=== PATIENT | female | born 1990 | race Caucasian/White ===

== ENCOUNTER 2023-12-03 10:52 | Outpatient (CLI) | payer OTHER, SELFPAY ==
--- OUTSIDE RECORDS SUMMARY | 2023-12-03 10:55 | XMS_ITS | Clinical Summary ---
Author Name Unknown Organization [place] Address [address] [place] [address]. [place] [address] Care Team Providers Care Concrete Block Molder Name Role Phone Courtney Vilchis MD Primary Care Provider Allergies Active Allergy Reactions Criticality Noted Date Comments Ciprofloxacin 12/24/2016 Tendons ached Penicillins 05/03/2013 Secukinumab 02/05/2018 Medications Medication Sig Dispensed Refills Start Date End Date Status ADDERALL XR 25 MG 24 hr capsule 0 11/02/2016 Active tretinoin (RETIN-A) 0.05 % cream 0 10/21/2017 Active HUMIRA *CF* PEN 40 MG/0.4ML pen kit 0 09/22/2018 Active nitroFURantoin macrocrystal-monohydr ate (MACROBID) 100 MG capsuleIndications:Re current UTI Take 1 capsule (100 mg) by mouth daily as needed (After intercourse) 30 capsule 3 03/02/2020 Active nitroFURantoin macrocrystal (MACRODANTIN) 100 MG capsuleIndications:Re current UTI Take 1 capsule (100 mg) by mouth daily as needed (After intercourse) 30 capsule 1 03/07/2020 Active Active Problems Problem Noted Date Diagnosed Date depression 07/07/2015 Attention deficit hyperactivity disorder (ADHD) 04/13/2014 Overview: Problem list name updated by automated process. Provider to review Last Assessment & Plan: Seen at [facility] for treatment of ADHD. Psoriasis 04/13/2014 CARDIOVASCULAR SCREENING; LDL GOAL LESS THAN 160 04/13/2014 Resolved Problems Problem Noted Date Diagnosed Date Resolved Date BMI 30.0-30.9,adult 12/24/2016 01/12/20 20 S/P section 05/23/2015 015 Indication for care in labor or delivery 05/22/2015 07/07/2015 IUFD (intrauterine ) 05/22/2015 07/07/2015 Supervision of normal first 10/21/2014 07/07/2015 Contraception 04/13/2014 11/25/2014 Immunizations Name Administration Dates Next Due Influenza Vaccine >6 months,quad, PF 08/11/2019, 07/09/2018,05/18/2015 TDAP (Adacel,Boostrix) 02/06/2013 TDAP Vaccine (Adacel) 03/21/2015 Family History Medical History Relation Comments Depression Father Heart Disease Father of heart at tack Hypertension Father Lipids Father Anxiety Disorder Mother Hyperlipidemia Mother Breast Cancer Paternal Aunt 1 Breast Cancer Paternal Aunt 2 Breast Cancer Paternal Grandmother Relation Status Comments Brother Alive Father Maternal Grandfather Alive Maternal Grandmother Alive Mother Alive Paternal Aunt 1 Alive Paternal Aunt 2 Other Paternal Grandfather Alive Paternal Grandmother Alive Sister Alive Social History Tobacco Use Types Packs/Day Years Used Date Smoking Tobacco: Never Smokeless Tobacco: Never Alcohol Use Standard Drinks/Week Comments Yes 10 (1 standard drink = 0.6 oz pu re alcohol) occasional AUDIT-C Answer Date Recorded Frequency of Alcohol Consumption Not on file 01/12/2020 Q2: How many drinks containi ng alcohol do you have on a typical day when you are drinking? 1 or 2 01/12/2020 Frequency of Binge Drinking Not on file 12/24 PHQ-2 Answer Date Recorded PHQ-2 Score 2 04/13/2019 Adolescent Education Answer Date Record ed Getting School Help Needed Not on file 05/16 Education Answer Date Recorded What is the highest level of school you have completed or the highest degree you have received? 12th grade 01/12/2020 Sex and Gender Information Value Date Recorded Sex Assigned at Not on file Gender Identity Not on file Sexual Orientation Not on file Last Filed Vital Signs Vital Sign Reading Time Taken Comments Blood Pressure 115/74 01/12/2020 9:38 AM CDT Pulse 78 01/12/2020 9:38 AM CDT Temperature 37 ??C (98.6 ??F) 01/12/2020 9:38 AM CDT Respiratory Rate 16 01/12/2020 9:38 AM CDT Oxygen Saturation 99% 01/12/2020 9:38 AM CDT Inhaled Oxygen Concentration - - Weight 82.1 kg (181 lb) 01/12/2020 9:38 AM CDT Height 177.8 cm (5' 10) 01/12/2020 9:38 AM CDT Body Mass Index 25.97 01/12/2020 9:38 AM CDT Plan of Treatment Not on file Procedures Procedure Name Priority Date/Time Associated Diagnosis Comments PAP IMAGED THIN LAYER SCREEN Routine 04/13/2019 9:13 AM CDT Screening for cervical cancer HIV ANTIGEN ANTIBODY COMBO Routine 09/30/2014 10:07 AM SUPERVISOR BOTTLE HOUSE CLEANERS Supervision of normal first , first trimester from Last 3 Months or Most Recently Relevant to Health Maintenance Results * Pap imaged thin layer screen reflex to HPV if ASCUS - recommend age 25 - 29 (04/13/2019 9:13 AM CDT) PAP CANDY Gill Report Patient Name: MISHEL AYALA MR#: [id number] Specimen #: [id number] Collected: 04/13/2019 Received: 04/13/2019 Reported: 04/15/2019 10:13 Ordering Phy(s): IGNACIA BLOOM For improved result formatting, select 'View Enhanced Report Format' under Linked Documents section. SPECIMEN/STAIN PROCESS: Pap imaged thin layer prep screening (Surepath, FocalPoint with guided screening) ? Pap-Cyto x 1 SOURCE: Specimen Source Not Indicated Pap imaged thin layer prep screening (Surepath, FocalPoint with guided screening) SPECIMEN ADEQUACY: Satisfactory for evaluation. -Transformation zone component present. CYTOLOGIC INTERPRETATION: Negative for intraepithelial lesion or malignancy Electronically signed out by: DONNY Darling ([facility]) CLINICAL HISTORY: Papanicolaou Test Limitations: ??Cervical cytology is a screening test with limited sensitivity; regular screening is critical for cancer prevention; Pap tests are primarily effective for the diagnosis/preventi on of squamous cell carcinoma, not adenocarcinomas or other cancers. COLLECTION SITE: Client: ??[facility] Location: [facility] (R) The technical component of this testing was completed at the [facility], with the professional component performed at the [facility], [address] [place] [phone] ([phone]) COPATH Cytologic material (specimen) 04/13/2019 9:13 AM CDT 04/13/2019 2:41 PM CDT Ignacia Bloom PA-C LAB - OPTIM E CLINICAL SPECIMEN Performing Organization Address [facility]/ZIP Co de Phone Number COPATH * HIV Antigen Antibody Combo (09/30/2014 10:07 AM SUPERVISOR BOTTLE HOUSE CLEANERS) HIV Antigen Antibody Combo Nonreactive HIV-1 p24 Ag & HIV-1/HIV-2 Ab Not Detected NR [facility] Blood specimen (specimen) 09/30/2014 10:07 AM SUPERVISOR BOTTLE HOUSE CLEANERS 09/30/2014 10:09 AM SUPERVISOR BOTTLE HOUSE CLEANERS Hood Chery MD LAB - BLOOD ORDERAB LES Performing Organization Address City/[facility]/ZIP Co de Phone Number [facility] [address] [place] [address] from Last 3 Months or Most Recently Relevant to Health Maintenance Care Teams Concrete Block Molder Relationship Specialty Start Date End Date Courtney Vilchis MD [address] [place], [place] [id number] PCP - General Family Practice 01/11/20
--- OUTSIDE RECORDS SUMMARY | 2023-12-03 10:55 | XMS_ITS | Clinical Summary ---
Author Name Unknown Organization [facility] Address [place], [place] [address] Care Team Providers Care Charter Coach Driver Name Role Phone Kendall Vinson MD Primary Care Provider [phone] Allergies Active Allergy Reactions Criticality Noted Date Comments Ciprofloxacin *Unknown - Pt Doesn' t Remember 07/02/2016 Ciprofloxacin *Unknown 05/28/2019 Penicillin Hives 05/26/2015 pt says she has had amox before without issues 05/28/19 Penicillins *Unknown - Pt Doesn' t Remember 07/02/2016 Medications Medication Sig Dispensed Refills Start Date End Date Status ranitidine (ZANTAC) 150 mg tablet Take 150 mg by mouth once daily. Active LORATADINE (CLARITIN ORAL) 1 Tab DAILY. Active Social History Tobacco Use Types Packs/Day Years Used Date Smoking Tobacco: Never Assessed Sex and Gender Information Value Date Recorded Sex Assigned at Not on file Gender Identity Not on file Sexual Orientation Not on file Last Filed Vital Signs Vital Sign Reading Time Taken Comments Blood Pressure 136/84 05/26/2015 2:00 PM CDT Pulse 84 05/26/2015 2:00 PM CDT Temperature 35.9 ??C (96.7 ??F) 05/26/2015 2:00 PM CD T Respiratory Rate 16 05/26/2015 2:00 PM CDT Oxygen Saturation - - Inhaled Oxygen Concentration - - Weight - - Height - - Body Mass Index - - Plan of Treatment Health Maintenance Due Date Last Done Comments Tdap 2002 Depression screening for age 12+ 2003 HIV for age 15-65 2006 BMI (ht and wt on same day) for age 18+ 2009 Hepatitis C screening for ag e 18-79 2009 Tetanus booster 2011 COVID-19 vaccine series (2022- season) 2023 Influenza for age 9-49 04/25/2024 Pap test for age 21-65 10/30/2025 , 10/30/2022 Pneumococcal series for age 6-64 Aged Out No longer eligible b ased on patient's age to complete this topic Procedures Procedure Name Priority Date/Time Associated Diagnosis Comments HPV THIN PREP Routine 10/30/2022 12:45 PM PACKING TRACTOR MACHINE OPERATOR from Last 3 Months or Most Recently Relevant to Health Maintenance Results * HPV HIGH RISK (10/30/2022 12:45 PM PACKING TRACTOR MACHINE OPERATOR) TYPE 16 Negative Negative 11/07/2022 10:23 AM CDT [facility] TRAL LABORATORY TYPE 18 Negative Negative 11/07/2022 10:23 AM CDT [facility] OTHER HIGH RISK TYPES Negative Negative 11/07/2022 10:23 AM CDT [facility] Other (Cervical/Vagina l) 10/30/2022 12:45 PM PACKING TRACTOR MACHINE OPERATOR 11/01/2022 8:46 AM PACKING TRACTOR MACHINE OPERATOR Narrative [facility] - 11/07/2022 10:23 AM CDT HPV types 16, 18, 31, 33, 35, 39, 45, 51, 52, 56, 58, 59, 66 and 68 DNA were undetectable or below the pre-set threshold. Methodology: Betito Dyan 4800 HPV Test Frankie Miguel PA-C MICROBIOLOGY [facility] [address] [place] [address], [place] from Last 3 Months or Most Recently Relevant to Health Maintenance Care Teams Charter Coach Driver Relationship Specialty Start Date End Date Kendall Vinson MD [address] [place] [address] PCP - General Family Practice 09/28/20
--- OUTSIDE RECORDS SUMMARY | 2023-12-03 10:55 | XMS_ITS | Encounter Summary ---
Author Name Unknown Organization [place] Address [facility] [place] [address] Care Team Providers Care Print Finishing Worker Name Role Phone Hood Chery MD Primary Care Provider Unav ailable Mary Nguyễn Ra STEAMFITTER APPRENTICE GROUND WATER TECHNICIAN Primary Care Provid er Mary Nguyễn Ra STEAMFITTER APPRENTICE GROUND WATER TECHNICIAN Unavailable + [phone] Mary Nguyễn Ra STEAMFITTER APPRENTICE GROUND WATER TECHNICIAN Unavailable + [phone] Ignacia Lozoya PA-C Unavailable +[phone] Courtney Vilchis MD Primary Care Provider [phone] Courtney Vilchis MD Unavailable [phone] Mary Nguyễn Ra, APRN GROUND WATER TECHNICIAN Unavailable + [phone] Courtney Vilchis MD Unavailable +[phone] Courtney Vilchis MD Unavailable +[phone] Encounter Details Date Type Department Care Team (Late st Contact Info) Description 12/14/2014 [facility] [address] [place] [address] Hood Chery MD RETIRED Social History Tobacco Use Types Packs/Day Years Used Date Smoking Tobacco: Never Smokeless Tobacco: Never Alcohol Use Standard Drinks/Week Comments No 0 (1 standard drink = 0.6 oz pur e alcohol) none since Comments Yes Sex and Gender Information Value Date Recorded Sex Assigned at Not on file Gender Identity Not on file Sexual Orientation Not on file documented as of this encounter Plan of Treatment Not on file documented as of this encounter Visit Diagnoses Not on filedocumented in this encounter Care Teams Print Finishing Worker Relationship Specialty Start Date End Date Hood Chery MD PCP - General hot dip tinning supervisor 01/09/15 04/14/18 Mary Nguyễn Ra, APRN GROUND WATER TECHNICIAN [address] [place] [address] PCP - General Family Practice 04/15/18 01/10/20 Mary Nguyễn Ra, APRN CNP [address] [address] [address] PCP - Assigned PCP 09/01/16 10/27/18 Courtney Vilchis MD [address] [place] [address] PCP - General Family Practice 01/11/20 Mary Nguyễn Ra, APRN GROUND WATER TECHNICIAN [address] [address] Assigned PCP 09/01/16 06/19/19 Ignacia Lozoya PA-C [address] [facility] [address] [place] [address] Assigned PCP 06/20/19 02/19/20 Courtney Vilchis MD [address] [place] [address] Assigned PCP 02/20/20 12/02/20 Mary Nguyễn Ra, APRN GROUND WATER TECHNICIAN [address] [place] [address] Assigned PCP 12/03/20 02/10/21 [place] [address] [place] [address] Assigned PCP 02/11/21 08/09/22 Courtney Vilchis MD [address] [place] [address] Assigned PCP 10/19/22 01/17/23 documented as of this encounter
--- OUTSIDE RECORDS SUMMARY | 2023-12-03 10:55 | XMS_ITS | Encounter Summary ---
Author Name Unknown Organization [place] Address [facility] [place] [address] Care Team Providers Care Magazine Filler Name Role Phone Mary Nguyễn Ra, APRN STAFF PHYSICAL THERAPY ASSISTANT Primary Care Provid er Mary Nguyễn Ra, APRN, CNP Unavailable + [phone] Ignacia Lozoya PA-C Unavailable +[phone] Courtney Vilchis MD Primary Care Provider [phone] Courtney Vilchis MD Unavailable Mary Nguyễn Ra, APRN STAFF PHYSICAL THERAPY ASSISTANT Unavailable [phone] Courtney Vilchis MD Unavailable [phone] Courtney Vilchis MD Unavailable [phone] Reason for Visit * Reason Onset Date Comments Refill Request 12/16/2018 Encounter Details Date Type Department Care Team (Late st Contact Info) Description 12/16/2018 MyC Refill [facility] [address] [place] [address] Mary Nguyễn Ra, APRN STAFF PHYSICAL THERAPY ASSISTANT [address] [place] [address] Refill Request Social History Tobacco Use Types Packs/Day Years Used Date Smoking Tobacco: Never Smokeless Tobacco: Never Alcohol Use Standard Drinks/Week Comments Yes 0 (1 standard drink = 0.6 oz pur e alcohol) occasional PHQ-2 Answer Date Recorded PHQ-2 Score 0 09/02/2018 Sex and Gender Information Value Date Recorded Sex Assigned at Not on file Gender Identity Not on file Sexual Orientation Not on file documented as of this encounter Miscellaneous Notes * Telephone Encounter - Yue Kruger RN - 12/18/2018 4:32 PM CDT Erroneous. Has been filled. Yue Kruger RN Flex documented in this encounter Plan of Treatment Not on file documented as of this encounter Visit Diagnoses Diagnosis Recurrent UTI Urinary tract infection, site not specified documented in this encounter Additional Health Concerns Assessment Noted Time PHQ-9 Depression Total Score: 19 016 7:09 AM NUISANCE WILDLIFE CONTROL OPERATOR documented as of this encounter Care Teams Magazine Filler Relationship Specialty Start Date End Date Mary Nguyễn Ra, APRN STAFF PHYSICAL THERAPY ASSISTANT [address] [place] [address] PCP - General Family Practice 04/15/18 01/10/20 Courtney Vilchis MD [address] [place] [address] PCP - General Family Practice 01/11/20 Mary Nguyễn Ra, APRN STAFF PHYSICAL THERAPY ASSISTANT [address] [place] [address] Assigned PCP 09/01/16 06/19/19 Ignacia Lozoya PA-C [address] [facility] [address] [place] [address] Assigned PCP 06/20/19 02/19/20 Courtney Vilchis MD [address] [place] [address] Assigned PCP 02/20/20 12/02/20 Mary Nugyễn Ra, BASIN TENDER STAFF PHYSICAL THERAPY ASSISTANT [address] [place] [address] Assigned PCP 12/03/20 02/10/21 Courtney Vilchis MD [address] [place] [address] Assigned PCP 02/11/21 08/09/22 Courtney Vilchis MD [address] [place] [address] Assigned PCP 10/19/22 01/17/23 documented as of this encounter
--- OUTSIDE RECORDS SUMMARY | 2023-12-03 10:55 | XMS_ITS | Referral Summary ---
Author Name Unknown Organization [place] Address [address] [place] [address]. [place] [address] Care Team Providers Care Lead Housekeeper Name Role Phone Courtney Vilchis MD Primary Care Provider [phone] Allergies Active Allergy Reactions Criticality Noted Date [...] review Last Assessment & Plan: Seen at [facility] for treatment of ADHD. Psoriasis 04/13/2014 CARDIOVASCULAR [...] TDAP (Adacel,Boostrix) 02/06/2013 TDAP Vaccine (Adacel) 03/21/2015 Social History Tobacco Use Types Packs/Day Years [...] ANTIGEN ANTIBODY COMBO Routine 09/30/2014 10:07 AM MELTER SUPERVISOR Supervision of normal first , first trimester from Last 3 Months or Most Recently Relevant to Health Maintenance Results * Pap imaged thin layer screen reflex to HPV if ASCUS - recommend age 25 - 29 (04/13/2019 9:13 AM CDT) PAP CANDY Gill Report Patient Name: MISHEL AYALA MR#: [id number] Specimen #: [id number] Collected: 04/13/2019 Received: 04/13/2019 Reported: 04/15/2019 10:13 [...] malignancy Electronically signed out by: DONNY Darling ([facility]) CLINICAL HISTORY: Papanicolaou Test Limitations: ??Cervical cytology is a screening test with limited sensitivity; regular screening is critical for cancer prevention; Pap tests are primarily effective for the diagnosis/preventi on of squamous cell carcinoma, not adenocarcinomas or other cancers. COLLECTION SITE: Client: ??[facility] Location: [facility] (R) The technical component of this testing was completed at the [facility], with the professional component performed at the [facility], [address] [facility] [place], [place] [address] ([phone]) COPATH Cytologic material (specimen) 04/13/2019 9:13 AM CDT 04/13/2019 2:41 PM CDT Ignacia Bloom PA-C LAB - OPTIM E CLINICAL SPECIMEN Performing Organization Address [facility]/ZIP Co de Phone Number COPATH * HIV Antigen Antibody Combo (09/30/2014 10:07 AM MELTER SUPERVISOR) HIV Antigen Antibody Combo Nonreactive HIV-1 p24 Ag & HIV-1/HIV-2 Ab Not Detected NR [facility] Blood specimen (specimen) 09/30/2014 10:07 AM MELTER SUPERVISOR 09/30/2014 10:09 AM MELTER SUPERVISOR Hood Chery MD LAB - BLOOD ORDERAB LES Performing Organization Address [facility] Co de Phone Number [facility] [address] [place] [address] from Last 3 Months or Most Recently Relevant to Health Maintenance Care Teams Lead Housekeeper Relationship Specialty Start Date End Date Courtney Vilchis MD [address] [place] [address] PCP - General Family Practice 01/11/20
--- OUTSIDE RECORDS SUMMARY | 2023-12-03 10:55 | XMS_ITS | Encounter Summary ---
Author Name Unknown Organization [place] Address [facility] [place] [address] Care Team Providers Care Supervisor Pig Machine Name Role Phone Courtney Vilchis MD Primary Care Provider [phone] Courtney Vilchis MD Unavailable [phone] Mary Nguyễn Ra, APRN REFINERY OPERATOR GAS PLANT Unavailable + [phone] Courtney Vilchis MD Unavailable [phone] Courtney Vilchis MD Unavailable [phone] Encounter Details Date Type Department Care Team (Late st Contact Info) Description 02/29/2020 MyC Medical Advice [address] [address] Ignacia Lozoya PA-C [address] [place] [address] [address] [place] [address] Social History Tobacco Use Types Packs/Day Years [...] Answer Date Recorded PHQ-2 Score 2 04/13/2019 Education Answer Date Recorded What is the [...] Diagnoses Not on filedocumented in this encounter Additional Health Concerns Assessment Noted Time PHQ-9 Depression Total Score: 9 04/13/20 9:27 AM CDT documented as of this encounter Care Teams Supervisor Pig Machine Relationship Specialty Start Date End Date Courtney Vilchis MD [address] [place] [address] PCP - General Family Practice 01/11/20 Courtney Vilchis MD [address] [place] [address] Assigned PCP 02/20/20 12/02/20 Mary Nguyễn Ra, STEEL RULE DIE MAKER APPRENTICE REFINERY OPERATOR [employer] [address] [place] [address] Assigned PCP 12/03/20 02/10/21 Courtney Vilchis MD [address] [place] [address] Assigned PCP 02/11/21 08/09/22 Courtney Vilchis MD [address] [place] [address] Assigned PCP 10/19/22 01/17/23 documented as of this encounter
--- OUTSIDE RECORDS SUMMARY | 2023-12-03 10:55 | XMS_ITS | Encounter Summary ---
Author Name Unknown Organization [place] Address [address] [place] [address]. [place] [address] Care Team Providers Care Ammonia Nitrate Operator Name Role Phone Mary Nguyễn Ra ECONOMIC SPECIALIST CIGARETTE ROLLER Primary Care Provid er Mary Nguyễn Ra, APRN CIGARETTE ROLLER Unavailable [phone] Mary Nguyễn Ra, APRN CIGARETTE ROLLER Unavailable [phone]- [phone] Ignacia Lozoya PA-C Unavailable [phone] Courtney Vilchis MD Primary Care Provider Courtney Vilchis MD Unavailable Mary Nguyễn Ra, APRN CIGARETTE ROLLER Unavailable [phone] Courtney Vilchis MD Unavailable [phone] Courtney Vilchis MD Unavailable Reason for Visit * Reason Onset Date Comments Urinary Problem 06/16/2018 Encounter Details Date Type Department Care Team (Late st Contact Info) Description 06/16/2018 [facility] [address] [place] [address] Mary Nguyễn Ra, APRN CIGARETTE ROLLER [address] [place] [address] Urinary Problem Social History Tobacco Use Types Packs/Day Years Used Date Smoking Tobacco: Never Smokeless Tobacco: Never Alcohol Use Standard Drinks/Week Comments Yes 0 (1 standard drink = 0.6 oz pur e alcohol) occasional Sex and Gender Information Value Date Recorded Sex Assigned at Not on file Gender Identity Not on file Sexual Orientation Not on file documented as of this encounter Miscellaneous Notes * Telephone Encounter - Vale Ye RN - 06/16/2018 7:26 AM CDT Will forward to Mary - gayle pts mychart. documented in this encounter Plan of Treatment Not on file documented as of this encounter Visit Diagnoses Not on filedocumented in this encounter Additional Health Concerns Assessment Noted Time PHQ-9 Depression Total Score: 19 08/23/ 016 7:09 AM TELEVISION SERVICER documented as of this encounter Care Teams Ammonia Nitrate Operator Relationship Specialty Start Date End Date Mary gNuyễn Ra, APRN CIGARETTE ROLLER [address] [address] [address] PCP - General Family Practice 04/15/18 01/10/20 Mary Nguyễn Ra, APRN CIGARETTE ROLLER [address] [address] [address] PCP - Assigned PCP 09/01/16 10/27/18 Courtney Vilchis MD [address] [place] [address] PCP - General Family Practice 01/11/20 Mary Nguyễn Ra, APRN CIGARETTE ROLLER [address] [address] [address] Assigned PCP 09/01/16 06/19/19 Ignacia Lozoya PA-C [address] [place] [address] [address] [place] [address] Assigned PCP 06/20/19 02/19/20 Courtney Vilchis MD [address] [place] [address] Assigned PCP 02/20/20 12/02/20 Mary Nguyễn Ra, ECONOMIC SPECIALIST CIGARETTE ROLLER [address] [place] [address] Assigned PCP 12/03/20 02/10/21 Courtney Vilchis MD [address] [place] [address] Assigned PCP 02/11/21 08/09/22 Courtney Vilchis MD [address] [place] [address] Assigned PCP 10/19/22 01/17/23 documented as of this encounter
== END 2023-12-03 10:53 | disposition home or self-care (01) ==
PROVIDERS: PCP Physician Assistant Medical; Visit Provider Physician Assistant Medical
DX: R63.5 Abnormal weight gain (principal); Z68.30 Body mass index [BMI] 30.0-30.9, adult; Z13.29 Encounter for screening for other suspected endocrine disorder; Z13.228 Encounter for screening for other metabolic disorders
CPT/HCPCS: 80053; 84443